=== PATIENT | female | born 1930 | race Caucasian/White ===

== ENCOUNTER 2017-02-11 19:23 | Emergency (ER) | payer MEDICARE ==
[~2017-02-11 19:23] MED LIST: CHOL400T14 PO; DOCU100C5 PO; FLUT1DIS IH; FURO20TA3 PO; HYDR-2762 PO; POTA10CA PO; TIOT18CA IH; VERA120T5 PO; VIT1TABL32 PO; VORI200T2 PO
--- NOTE | 2017-02-11 19:43 | PHYS DOC ---
Past Medical History Past Medical History: Kidney Stone, Other Additional Past Medical Histor: blood clots Past Surgical History: Other Additional Past Surgical Histo: vena cava filter, renal stent Alcohol Use: None Drug Use: None Adult General Chief Complaint Chief Complaint: CONSTIPATION HPI HPI 86-year-old female with history of asthma and COPD who normally has a low O2 sat at home but does not require supplemental O2 who presents with no bowel movements for the last 5 days. She denies any abdominal pain whatsoever. She denies any nausea or vomiting. She denies any fever or chills. 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 Patient has been trying PEG and milk of magnesia without relief. Patient does not believe she is passing flatus. Review of Systems Review of Systems Constitutional: Denies fever or chills [] Eyes: Denies change in visual acuity, redness, or eye pain [] HENT: Denies nasal congestion or sore throat [] Respiratory: Denies cough or shortness of breath [] Cardiovascular: No additional information not addressed in HPI [] GI: Denies abdominal pain, nausea, vomiting, bloody stools or diarrhea [] : Denies dysuria or hematuria [] Musculoskeletal: Denies back pain or joint pain [] Integument: Denies rash or skin lesions [] Neurologic: Denies headache, focal weakness or sensory changes [] Endocrine: Denies polyuria or polydipsia [] Allergies Allergies Allergies Coded Allergies Type Severity Reaction Last Updated Verified No Known Drug Allergies 03/30/15 No Physical Exam Physical Exam Constitutional: Well developed, well nourished, no acute distress, non-toxic appearance. [] HENT: Normocephalic, atraumatic, bilateral external ears normal, oropharynx moist, no oral exudates, nose normal. [] Eyes: PERRLA, EOMI, conjunctiva normal, no discharge. [] Neck: Normal range of motion, no tenderness, supple, no stridor. [] Cardiovascular:Heart rate regular rhythm, no murmur [] Lungs & Thorax: Bilateral breath sounds clear to auscultation [] Abdomen: Bowel sounds normal, soft, no tenderness, no masses, no pulsatile masses. [] Skin: Warm, dry, no erythema, no rash. [] Back: No tenderness, no CVA tenderness. [] Extremities: No tenderness, no cyanosis, no clubbing, ROM intact, no edema. [] Neurologic: Alert and oriented X 3, normal motor function, normal sensory function, no focal deficits noted. [] Psychologic: Affect normal, judgement normal, mood normal. [] Current Patient Data Vital Signs Vital Signs Date Time Temp Pulse Resp B/P Pulse Ox O2 Delivery O2 Flow Rate FiO2 02/11/17 19:52 98.1 76 20 129/62 94 Room Air 98.1 EKG EKG [] Radiology/Procedures Radiology/Procedures [] Course & Med Decision Making Course & Med Decision Making Pertinent Labs and Imaging studies reviewed. (See chart for details) This 86-year-old female who is not had a bowel movement for the last 5 days will receive an enema in the department. Her abdomen is somewhat firm in the lower quadrants but there is no rebound or guarding. Her bowel sounds are hypoactive. Her exam is consistent with severe constipation. My final reassessment, the patient feels much improved and had a fairly large bowel movement following enema. I'll be discharging her with a course of stool softeners strict instructions continue drinking plenty of fluids at home and to follow closely with her primary care doctor. She is to return to the ER if she develops any worsening of her constipation or develops any pain, nausea, or vomiting. Patient has no pain upon my final examination. There is no indication at this time to perform any laboratory workup or imaging. Dragon Disclaimer Dragon Disclaimer This electronic medical record was generated, in whole or in part, using a voice recognition dictation system. Departure Departure Impression: Primary Impression: Constipation Disposition: 01 HOME, SELF-CARE Admitting Physician: Other Condition: STABLE Referrals: NON,STAFF (PCP) Patient Instructions: Constipation, Adult, [id number] Additional Instructions: Please follow up with your primary doctor in the next 2-3 for your ongoing constipation. Take miralax daily and continue to drink plenty of fluids. Return to the ER if you develop any pain or nausea/vomiting. Scripts Polyethylene Glycol 3350 (Miralax)17 Gm Powd.pack1 Pkt PO DAILY #5 PKT Prov:YOON TUCKER DO 02/11/17 YOON TUCKER DO Feb 11, 2017 19:43
[2017-02-11] MEDS ORDERED: POLY17PO5 PO (20:55)
[2017-02-11 21:06] VITALS: BP 137/64
== END 2017-02-11 21:15 | disposition home or self-care (01) ==
LOC: ER 19:23
DX: K59.00 Constipation, unspecified (principal); R53.1 Weakness; J45.909 Unspecified asthma, uncomplicated; J44.9 Chronic obstructive pulmonary disease, unspecified; Z99.81 Dependence on supplemental oxygen; Z87.442 Personal history of urinary calculi
CPT/HCPCS: 99284

== ENCOUNTER 2018-04-28 12:21 | Emergency (ER) | payer MEDICARE ==
[2018-04-28] MEDS: DOCUSATE SODIUM 100 MG CAPSULE. PO ×2 (13:24)
[2018-04-28] MEDS: SENNOSIDES 8.6 MG TABLET PO (13:24)
== END 2018-04-28 14:26 | disposition home or self-care (01) ==
LOC: ER 12:21
DX: K59.00 Constipation, unspecified (principal); J44.9 Chronic obstructive pulmonary disease, unspecified; Z87.442 Personal history of urinary calculi
CPT/HCPCS: 99284